=== PATIENT | female | born 1980 ===

== ENCOUNTER 2018-11-27 21:27 | Inpatient (IN) ==
[2018-11-27 21:54] LABS: Apearance,Urine CLEAR (Clear); Bilirubin,Urine Negative (Negative); Blood, Urine Moderate mg/dL (Negative); Glucose,Urine (UA) Negative (Negative); Ketones,Urine Negative (Negative); Mucus,Urine Occasional /LPF (Occasional); Nitrite,Urine Negative (Negative); Protein,Urine Negative; RBC,Urine 60 /HPF (0-4); Squamous Epithelial Cell,Urine Occasional /HPF (0-10); Urine Color Yellow (Yellow); Urine Specific Gravity 1.009 (1.001-1.035); Urine Urobilinogen < 2.0 EU/DL (0.2-1.0); WBC,Urine 3 /HPF (0-6)
[2018-11-27] MEDS: LACTATED RINGERS 1,000 ML IV SCH (23:25)
[2018-11-27] MEDS: BUTORPHANOL 2 MG/ML VIAL IV PRN (23:27)
[2018-11-27] MEDS: ONDANSETRON 4 MG/2 ML VIAL IV PRN (23:28)
[2018-11-27 23:31] LABS: Alanine Aminotransferase 26 U/L (13-56); Albumin 2.3 G/DL (3.4-5.0); Alkaline Phosphatase 181 U/L (45-117); Amylase 59 U/L (25-115); Aspartate Amino Transferase 21 U/L (0-37); Bilirubin,Total < 0.39 MG/DL (0.2-1.0); Blood Urea Nitrogen 9 MG/DL (7-18); Calcium 8.4 MG/DL (8.5-10.1); Glucose 97 MG/DL (74-106); Osmolality,Calculated 275.5 MOS/KG (273-304); Potassium 3.6 MMOL/L (3.5-5.1); Sodium 139 MMOL/L (136-145); Total Protein 7.2 G/DL (6.4-8.3)
[2018-11-28] MEDS ORDERED: NIFEdipine 10 MG CAPSULE PO ONE (03:05)
[2018-11-28] MEDS ORDERED: BETAMETH SODIUM PHOS/ACETATE 30 MG/5 ML VIAL ONE (03:08)
[2018-11-28] MEDS ORDERED: AMPICILLIN 2,000 MG VIAL ONE (03:09)
[2018-11-28] MEDS: NIFEdipine 10 MG CAPSULE PO SCH ×5 (03:14→20:16)
[2018-11-28] MEDS: AMPICILLIN INJ 2,000 MG in SODIUM CHLORIDE 0.9% 100 ML IV SCH ×3 (03:15→19:19)
[2018-11-28] MEDS: BETAMETH SODIUM PHOS/ACETATE 30 MG/5 ML VIAL IM SCH ×2 (03:15→19:50)
[2018-11-28] MEDS: BUTORPHANOL 2 MG/ML VIAL IV PRN ×4 (03:21→17:28)
[2018-11-28] MEDS: LACTATED RINGERS 1,000 ML IV SCH ×2 (07:02→17:30)
[2018-11-28] MEDS: ONDANSETRON 4 MG/2 ML VIAL IV PRN (11:33)
[2018-11-28 13:55] LABS: Basophils % 0.1 % (0.0-0.8); Hematocrit 31.8 VOL% (35.7-47.0); Hemoglobin 9.7 GM/DL (12.0-16.0); Immature Granulocytes Absolute 0.08 #; Lymphocytes # 0.8 10*3/uL (1.4-4.0); Lymphocytes % 9.5 % (21.3-54.2); Mean Corpuscular HGB Conc 30.5 GM/DL (32-36); Mean Corpuscular Hemoglobin 27 PG (27-34); Mean Corpuscular Volume 89.1 FL (87-102); Mean Platelet Volume 10.8 FL (9.6-12.0); Monocytes # 0.1 10*3/uL (0.11-0.8); Monocytes % 1.7 % (1.7-12.7); Neutrophils # 7.2 10*3/uL (1.4-7.4); Neutrophils % 87.7 % (38.7-73.9); Platelet Count 337 T/CUMM (130-400); Red Blood Count 3.57 MC/CUMM (3.8-5.5); Red Cell Distribution Width 15.4 % (9.3-17.3); White Blood Count 8.2 T/CUMM (4-12)
[2018-11-29] MEDS ORDERED: CYCLOBENZAPRINE 10 MG TABLET PO PRN
[2018-11-29] MEDS: NIFEdipine 10 MG CAPSULE PO SCH ×7 (00:09→23:56)
[2018-11-29] MEDS: ACETAMINOPHEN 325 MG TABLET PO PRN (00:10)
[2018-11-29] MEDS: AMPICILLIN INJ 2,000 MG in SODIUM CHLORIDE 0.9% 100 ML IV SCH ×3 (03:06→18:58)
[2018-11-29] MEDS ORDERED: BETAMETH SODIUM PHOS/ACETATE 30 MG/5 ML VIAL IM ONE (03:15)
[2018-11-29] MEDS ORDERED: LEVOTHYROXINE 137 MCG TABLET PO ONE (06:00)
[2018-11-29] MEDS ORDERED: LEVOTHYROXINE 137 MCG TABLET PO SCH (06:00)
[2018-11-29] MEDS: LACTATED RINGERS 1,000 ML IV SCH ×2 (08:06→10:23)
[2018-11-30] MEDS: AMPICILLIN INJ 2,000 MG in SODIUM CHLORIDE 0.9% 100 ML IV SCH ×2 (03:17→12:45)
[2018-11-30 03:31] VITALS: BP 113/66
[2018-11-30] MEDS: NIFEdipine 10 MG CAPSULE PO SCH ×3 (03:54→14:07)
[2018-11-30] MEDS ORDERED: LEVOTHYROXINE 137 MCG TABLET PO SCH (06:30)
[2018-11-30] MEDS: ACETAMINOPHEN 325 MG TABLET PO PRN (11:41)
== END 2018-11-30 14:35 | disposition home or self-care (01) | DRG 833 ==
LOC: N.LDOUT 21:27 → N.LD 21:31 → EDOUTPBED 22:57 → N.SDSINP 11-28 18:52 → UNDODEPREF 12-01 13:57
PROVIDERS: ADMIT Obstetrics & Gynecology; ATTEND Obstetrics & Gynecology